=== PATIENT | male | born 1955 | race Caucasian/White ===

== ENCOUNTER 2017-02-28 09:30 | Emergency (ER) | payer MEDICARE, MEDICAID ==
[~2017-02-28] VITALS: Ht 177.8 cm; Wt 100.0 kg
[2017-02-28 09:32] VITALS: BP 163/83; PULSE 79; RESP 16; TEMP 98.6; O2SAT 100
[2017-02-28 09:50] VITALS: BP 150/76; PULSE 76; RESP 16; O2SAT 99
[2017-02-28] MEDS ORDERED: ASPI-183 PO (09:57)
[2017-02-28] MEDS ORDERED: NORT50CA PO (09:57)
[2017-02-28] MEDS ORDERED: DULO1CAP3 PO (09:57)
[2017-02-28] MEDS ORDERED: DILT1TAB4 PO (09:57)
[2017-02-28] MEDS ORDERED: PIRO20CA PO (09:57)
[2017-02-28] MEDS ORDERED: PRED20 PO (09:57)
[2017-02-28] MEDS ORDERED: LOVA20TA PO (09:57)
[2017-02-28] MEDS ORDERED: ALLO300T2 PO (09:57)
[2017-02-28] MEDS ORDERED: MS C15TA7 PO (09:57)
[2017-02-28] MEDS ORDERED: SOMA350T PO (09:57)
[2017-02-28] MEDS ORDERED: HYDR-3583 PO (09:57)
[2017-02-28] MEDS ORDERED: CLON0.1T PO (09:57)
[2017-02-28] MEDS ORDERED: DIAZ10TA PO (09:57)
[2017-02-28] MEDS ORDERED: GABA100C4 PO (10:03)
--- NOTE | 2017-02-28 11:10 | PD ---
HPI Chief Complaint: Pain: Acute or Chronic Time Seen by Provider: 10:29 Travel History International Travel<30 days: No Contact w/Intl Traveler<30days: No Traveled to known affect area: No History of Present Illness HPI 61-year-old male complains of low back pain, right knee pain and right hip pain. Patient states that he fell yesterday. Patient has history of chronic joint pain that has been seen by pain management. Patient has been to the emergency room multiple times in the past for chronic pain. Patient states that he fell yesterday on his right knee. Patient states that he has abrasion to right knee and increasing pain to right knee right hip and low back since then. Patient denies any head injury. Patient denies any headache or neck pain. Patient denies any chest pain or shortness of breath. Patient denies abdominal pain. Patient denies any focal weakness or numbness of extremity. Patient states that he has chronic problem with ambulation secondary to pain. Patient states that he has been seen by pain management and personal physician and being referred to see a neurologist. Patient states that he has appointment with neurologist in 3 days. Patient on diazepam, duloxetine, prednisone, Soma, hydrocodone, MS Contin and gabapentin. PFSH Past Medical History Atrial Fibrillation: Yes High Cholesterol: Yes Diminished Hearing: No GERD: Yes Gout: Yes Musculoskeletal: Yes (CHRONIC PAIN) Tetanus Vaccination: Unknown Influenza Vaccination: Yes Past Surgical History Tonsillectomy: Yes Social History Alcohol Use: Yes Tobacco Use: Yes (2 PPD ) Substance Use: No Allergies-Medications (Allergen,Severity, Reaction): Coded Allergies: codeine (Verified Allergy, Mild, Itching, 02/28/17) Reported Meds & Prescriptions Reported Meds & Active Scripts Active Reported Gabapentin 100 Mg Cap Unknown Dose PO 6 TIMES DAILY Ms Contin (Morphine Sulfate) 15 Mg Tab 15 Mg PO TID Hydrocodone-Acetaminophen 10-325 mg Tab 1 Tab PO QID PRN Soma (Carisoprodol) 350 Mg Tab 350 Mg PO TID PRN Nortriptyline (Nortriptyline HCl) 50 Mg Cap 50 Mg PO HS Prednisone 20 Mg Tab 20 Mg PO DAILY Piroxicam 20 Mg Cap 20 Mg PO DAILY Duloxetine DR (Duloxetine HCl) 60 Mg Capdr 60 Mg PO DAILY Allopurinol 300 Mg Tab 300 Mg PO DAILY Diltiazem ER 24 HR 240 Mg Alireza 240 Mg PO DAILY Diazepam 10 Mg Tab 10 Mg PO TID Lovastatin 20 Mg Tab 20 Mg PO DAILY Clonidine (Clonidine HCl) 0.1 Mg Tab 0.1 Mg PO DAILY Aspirin 325 Mg Tab 325 Mg PO DAILY Review of Systems General / Constitutional: No: Fever Eyes: No: Visual changes HENT: No: Headaches Cardiovascular: No: Chest Pain or Discomfort Respiratory: No: Shortness of Breath Gastrointestinal: No: Abdominal Pain Genitourinary: No: Dysuria Musculoskeletal: Positive: Pain Skin: No Rash Neurologic: No: Weakness Psychiatric: No: Depression Endocrine: No: Polydipsia Hematologic/Lymphatic: No: Easy Bruising Physical Exam Narrative GENERAL: Well-nourished, well-developed patient. SKIN: Focused skin assessment warm/dry. HEAD: Normocephalic. EYES: No scleral icterus. No injection or drainage. NECK: Supple, trachea midline. No JVD or lymphadenopathy. CARDIOVASCULAR: Regular rate and rhythm without murmurs, gallops, or rubs. RESPIRATORY: Breath sounds equal bilaterally. No accessory muscle use. GASTROINTESTINAL: Abdomen soft, non-tender, nondistended. MUSCULOSKELETAL: No cyanosis, or edema. Patient has small abrasion prepatellar area of the right knee. Limited range of motion of the right knee secondary to pain. No redness swelling no deformity noted. BACK: without obvious deformity. Neurologic exam: Patient awake and alert oriented 3. Patient has full range of motion of upper extremity. Patient has decrease in range of motion of lower extremity however no obvious focal neurological deficit. Data Data Last Documented VS Vital Signs Date Time Temp Pulse Resp B/P (MAP) Pulse Ox O2 Delivery O2 Flow Rate FiO2 02/28/17 12:36 18 02/28/17 09:58 61 02/28/17 09:50 150/76 (100) 99 Room Air 02/28/17 09:32 98.6 Orders Orders Hip, Uni(Ap&Lat) W Ap Pelvis (02/28/17 11:01) Knee, Ltd (1 Or 2vws) (02/28/17 11:01) Spine, Lumbar - Ltd (Ap & Lat) (02/28/17 11:01) Tetanus/Diphtheria Tox Adult (Tetanus/Di (02/28/17 11:15) Ketorolac Inj (Toradol Inj) (02/28/17 11:15) Orphenadrine Inj (Norflex Inj) (02/28/17 11:15) MDM Medical Decision Making Medical Screen Exam Complete: Yes Emergency Medical Condition: Yes Differential Diagnosis Last Impressions Lumbar Spine X-Ray 02/28/17 1101 Signed Impressions: Service Date/Time: Tuesday, February 28, 2017 11:28 - CONCLUSION: 1. Advanced multilevel degenerative disc disease as above with grade 1 anterolisthesis of L4 on L5 and minimal retrolisthesis of L3 on L4. Mild scoliosis. Daniel Duarte MD Knee X-Ray 02/28/17 1101 Signed Impressions: Service Date/Time: Tuesday, February 28, 2017 11:32 - CONCLUSION: 1. Moderate osteoarthritis especially medial joint. No acute findings. Daniel Duarte MD Hip and Pelvis X-Ray 02/28/17 110 Signed Impressions: Service Date/Time: Tuesday, February 28, 2017 11:28 - CONCLUSION: 1. No acute fracture. Mild osteoarthritis at the right hip. Daniel Duarte MD Narrative Course 61-year-old male with acute exacerbation of chronic pain secondary to fall. TD booster given. Toradol 60 mg IM. Norflex 60 mg IM. Diagnosis Primary Impression: Acute exacerbation of chronic low back pain Additional Impressions: Arthralgia Qualified Codes: M25.561 - Pain in right knee Abrasion of right knee Qualified Codes: S80.211A - Abrasion, right knee, initial encounter Patient Instructions: General Instructions Additional Instructions: Continue with medication as needed for pain. Follow-up with personal physician. Local wound care daily Med/Other Pt SpecificInfo: No Change to Meds Disposition: 01 DISCHARGE HOME Condition: Stable Cricket Cabrera MD Feb 28, 2017 11:10
[2017-02-28] MEDS ORDERED: TETANUS/DIPHTHERIA TOXOID ADULT 0.5 ML VIAL IM ONE (11:15)
[2017-02-28] MEDS ORDERED: ORPHENADRINE INJ 60 MG/2 ML AMP IM ONE (11:15)
[2017-02-28] MEDS ORDERED: KETOROLAC TROMETHAMINE 60 MG/2 ML (IM) VIAL IM ONE (11:15)
--- NOTE | 2017-02-28 12:18 | RADRPT ---
EXAM DATE/TIME: 02/28/2017 11:28 [facility] COMPARISON: No previous studies available for comparison. INDICATIONS : Lower back pain after fall. MEDICAL HISTORY : None. SURGICAL HISTORY : None. ENCOUNTER: Initial ACUITY: 1 day PAIN SCORE: 7/10 LOCATION: Bilateral lower back. FINDINGS: No acute fracture. Advanced degenerative disc disease with grade 1 anterolisthesis of L4 on L5 and mi nimal retrolisthesis of L3 on L4. Minimal dextroscoliosis. Advanced facet arthropathy. CONCLUSION: 1. Advanced multilevel degenerative disc disease as above with grade 1 anterolisthesis of L4 on L5 an d minimal retrolisthesis of L3 on L4. Mild scoliosis. Daniel Duarte MD on February 28, 2017 at 12:16 Board Certified Radiologist. This report was verified electronically.
--- NOTE | 2017-02-28 12:20 | RADRPT ---
EXAM DATE/TIME: 02/28/2017 11:32 [facility] COMPARISON: No previous studies available for comparison. INDICATIONS : Right knee pain after fall. MEDICAL HISTORY : None. SURGICAL HISTORY : None. ENCOUNTER: Initial ACUITY: 1 day PAIN SCORE: 7/10 LOCATION: Right knee. FINDINGS: Two view examination of the right knee demonstrates no evidence of fracture or dislocation. Bony min eralization is normal. Moderate osteoarthritis. The suprapatellar soft tissues have a normal configu ration. CONCLUSION: 1. Moderate osteoarthritis especially medial joint. No acute findings. Daniel Duarte MD on February 28, 2017 at 12:18 Board Certified Radiologist. This report was verified electronically.
--- NOTE | 2017-02-28 12:20 | RADRPT ---
EXAM DATE/TIME: 02/28/2017 11:28 [facility] COMPARISON: No previous studies available for comparison. INDICATIONS : Right hip pain after fall. MEDICAL HISTORY : None. SURGICAL HISTORY : None. ENCOUNTER: Initial ACUITY: 1 day PAIN SCORE: 7/10 LOCATION: Right hip. FINDINGS: Examination of the right hip was performed with AP Pelvis. The primary and secondary trabecular miguel ángel shawna of the femoral neck is intact. The hip joint is of normal width without significant sclerosis or bony hypertrophy. The acetabulum is grossly intact. CONCLUSION: 1. No acute fracture. Mild osteoarthritis at the right hip. Daniel Duarte MD on February 28, 2017 at 12:17 Board Certified Radiologist. This report was verified electronically.
[2017-02-28 12:36] VITALS: RESP 18
== END 2017-02-28 13:56 | disposition home or self-care (01) ==
LOC: NEPE 09:30
DX: M54.5 Low back pain (principal); S80.211A Abrasion, right knee, initial encounter; G89.29 Other chronic pain; M16.11 Unilateral primary osteoarthritis, right hip; M17.11 Unilateral primary osteoarthritis, right knee; M51.36 Other intervertebral disc degeneration, lumbar region; F17.200 Nicotine dependence, unspecified, uncomplicated; W19.XXXA Unspecified fall, initial encounter; Z23 Encounter for immunization
CPT/HCPCS: 72100; 73502; 73560; 90471; 90714; 96372; 99284; J1885; J2360